=== PATIENT | female | born 2000 | race Caucasian/White ===

== ENCOUNTER → 2019-10-11 | Outpatient (CLI) | payer BC ==
--- NOTE | 2019-10-11 15:29 | US ---
EXAMINATION TYPE: US thyroid st tissue head/neck DATE OF EXAM: 10/11/2019 COMPARISON: NONE CLINICAL HISTORY: E07.9 DISORDER OF THYROID. Thyroid disorder GLAND SIZE: Right Lobe: 5.3 x 1.9 x 1.7 cm Overall Parenchyma: homogenous Left Lobe: 3.8 x 1.1 x 1.4 cm Overall Parenchyma: homogeneous Isthmus Thickness: 0.3 cm NODULES RIGHT: # of nodules measured on right: 1 1. 0.6 X 0.4 x 0.6 cm hypoechoic nodule at the mid pole with poorly defined margins; . This nodule is wider than tall and shows intranodular vascularity. Prior size: no prior LEFT: # of nodules measured on left: 0 ISTHMUS: # of nodules measured in the isthmus: 0 Bilateral neck scanned, no evidence of lymphadenopathy. Thyroid gland is overall normal in size and slightly heterogeneous echotexture with subcentimeter hyp oechoic solid right thyroid nodule noted. IMPRESSION: As above. Normal-sized thyroid without greater than 1 cm solid or cystic nodule.
== END | disposition home or self-care (01) ==
LOC: RADUSWWP 14:55
PROVIDERS: ATTEND Family Medicine
DX: E07.9 Disorder of thyroid, unspecified (principal)
CPT/HCPCS: 76536